=== PATIENT | female | born 1940 | race Caucasian/White ===

== ENCOUNTER 2017-04-03 10:31 | Emergency (ER) | payer MEDICARE ==
[2017-04-03 10:43] VITALS: BP 149/95
--- NOTE | 2017-04-03 11:03 | UC ---
Dental HPI - HPI Summary HPI Summary: Had tooth #29 removed yesterday at [facility] in [place]; the dentist communicated that the infection was worse than he thought afterward, has taken 3 doses of clindamycin since then. Today face is much more swollen, has more pain. Denies fever or trouble swallowing. - History of Current Complaint Chief Complaint: UCDentalProblem Stated Complaint: DENTAL COMPLAINT Time Seen by Provider: 04/03/17 10:41 Hx Obtained From: Patient ?: No Onset/Duration: Gradual Onset, Lasting Hours Severity: Moderate Alleviating: Nothing - Allergies/Home Medications Allergies/Adverse Reactions: Allergies Allergy/AdvReac Type Severity Reaction Status Date / Time Penicillins Allergy Hives Verified 12/15/14 08:22 Sulfa Drugs Allergy Unknown Verified 12/15/14 08:22 Reaction Details Home Medications: Home Medications Clindamycin HCl [Clindamycin 300 MG] 300 mg PO QID 04/03/17 [History Confirmed 04/03/17] PMH/Surg Hx/FS Hx/Imm Hx Other Cardiovascular History: arrhythmia Other History Of: Negative For: Anticoagulant Therapy - Surgical History Surgical History: Yes Surgery Procedure, Year, and Place: YOUNG CHILD T&ACHILD [id number] & 1990s CERVICAL POLYPS [facility] [place]07/2013 LEFT KNEE REPLACEMENT, [facility] [place] - Family History Known Family History: Positive: Hypertension - Social History Alcohol Use: None Substance Use Type: None Smoking Status (MU): Former Smoker Amount Used/How Often: 1/2 PPD Length of Time of Smoking/Using Tobacco: 4-5 YEARS When Did the Patient Quit Smoking/Using Tobacco: 1965 - Immunization History Most Recent Influenza Vaccination: fall 2012 Most Recent Tetanus Shot: within last ten years Most Recent Pneumonia Vaccination: pt states "current" Review of Systems Constitutional: Negative Skin: Negative Eyes: Negative ENT: Dental Pain, Other - swelling R face Respiratory: Negative Cardiovascular: Negative Gastrointestinal: Negative Genitourinary: Negative Motor: Negative Neurovascular: Negative Musculoskeletal: Negative Neurological: Negative Psychological: Negative All Other Systems Reviewed And Are Negative: Yes Physical Exam Triage Information Reviewed: Yes Appearance: Well-Appearing, Obese Vital Signs: Initial Vital Signs Temp 98.4 F 04/03/17 10:38 Pulse 69 04/03/17 10:38 Resp 18 04/03/17 10:38 BP 149/95 04/03/17 10:38 Pulse Ox 100 04/03/17 10:38 Vital Signs Reviewed: Yes Eye Exam: Normal Eyes: Positive: Conjunctiva Clear ENT Exam: Normal ENT: Positive: Normal ENT inspection, Hearing grossly normal, Pharynx normal, TMs normal Dental: Positive: Gross Decay/Caries @, Abscess @ - #29, marked swelling, Bleeding - from extraction Neck: Positive: Supple, Nontender Respiratory Exam: Normal Respiratory: Positive: Chest non-tender, Lungs clear, Normal breath sounds, No respiratory distress, No accessory muscle use Cardiovascular Exam: Normal Cardiovascular: Positive: RRR, No Murmur Musculoskeletal Exam: Normal Neurological Exam: Normal Neurological: Positive: Alert Psychological Exam: Normal Skin Exam: Normal Dental Complaint Course/Dx - Differential Dx/Diagnosis Provider Diagnoses: Dental abscess #29 Discharge - Discharge Plan Condition: Stable Disposition: HOME Patient Education Materials: Dental Abscess (ED) Additional Instructions: Please follow up with [facility] today as planned for further abscess drainage. If you develop fever, increasing swelling, trouble swallowing or breathing, or other severe symptoms, please go to the emergency department. Continue your clindamycin as prescribed.
== END 2017-04-03 11:15 | disposition home or self-care (01) ==
LOC: UCEAST 10:31
DX: K04.7 Periapical abscess without sinus (principal); K08.409 Partial loss of teeth, unspecified cause, unspecified class; I49.9 Cardiac arrhythmia, unspecified; E66.9 Obesity, unspecified; Z96.652 Presence of left artificial knee joint; Z88.0 Allergy status to penicillin; Z88.2 Allergy status to sulfonamides
CPT/HCPCS: 99211; G0463

== ENCOUNTER 2019-03-06 16:32 | Inpatient (IN) | payer MEDICARE ==
--- NOTE | 2019-03-06 17:13 | ED ---
Palpitations / Dysrhythmia - HPI Summary HPI Summary: Pt is a 78 y/o F presenting to the ED with a chief complaint of heart palpitations. She has had similar episodes to this that come relatively rarely and usually resolve fairly quickly. Today, she went for a followup echocardiogram at Dr. Arora office for a mitral valve check-up, and on the way to the appointment she started feeling her heart beat around in her chest. At the appointment, they decided to send her here for AFib. She denies CP or SOB. She has no other medical problems. - History of Current Complaint Chief Complaint: EDDysrhythmPalp Time Seen by Provider: 03/06/19 17:03 Hx Obtained From: Patient Onset/Duration: Sudden Onset, Lasting Hours, Still Present Timing: Constant Severity Initially: Moderate Severity Currently: Moderate Character: Fast Aggravating: Nothing Alleviating: Nothing - Allergy/Home Medications Allergies/Adverse Reactions: Allergies Allergy/AdvReac Type Severity Reaction Status Date / Time Penicillins Allergy Hives Verified 03/06/19 16:37 Sulfa (Sulfonamide Allergy Unknown Verified 03/06/19 16:37 Antibiotics) Reaction Details Home Medications: Home Medications NK [No Home Medications Reported] 03/06/19 [History Confirmed 03/06/19] PMH/Surg Hx/FS Hx/Imm Hx Previously Healthy: Yes Endocrine/Hematology History: Denies: Hx Anticoagulant Therapy, Hx Blood Disorders, Hx Blood Transfusions, Hx Bone Marrow Disease, Hx Diabetes, Hx Systemic Lupus Erythematosus, Hx Sickle Cell Disease, Hx Thyroid Disease, Hx Anemia, Hx Unexplained Bleeding, Other Endocrine/Hematological Disorders Cardiovascular History: Reports: 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 , Other Cardiovascular Problems/Disorders - mitral valve Denies: Hx Aneurysm, Hx Angina, Hx Angioplasty, Hx Auto Implanted Cardiovert Defib, Hx Cardiac Arrest, Hx Cardiomegaly, Hx Congenital Heart Disease, Hx Congestive Heart Failure, Hx Coronary Artery Disease, Hx Deep Vein Thrombosis, Hx Embolism, Hx Hypercholesterolemia, Hx Hypotension, Hx Hypertension, Hx Pacemaker/ICD, Hx Peripheral Vascular Disease, Hx Rheumatic Fever, Hx Syncope Respiratory History: Reports: Hx Sleep Apnea Denies: Hx Asthma, Hx Chronic Bronchitis, Hx Chronic Obstructive Pulmonary Disease (COPD), Hx Cystic Fibrosis, Hx Lung Cancer, Hx Pleural Effusion, Hx Pneumonia, Hx Pulmonary Edema, Hx Pulmonary Embolism, Hx Seasonal Allergies, Other Respiratory Problems/Disorders GI History: Denies: Hx Ulcer, Other GI Disorders History: Denies: Other Problems/Disorders Musculoskeletal History: Reports: Hx Arthritis - bilateral knees, Hx Bursitis - LEFT SHOULDER IN THE PAST Denies: Hx Back Problems, Hx Fibromyalgia, Hx Gout, Hx Orthopedic Injury, Hx Osteoporosis, Hx Scoliosis, Hx Tendonitis Sensory History: Reports: Hx Cataracts - LANE, Hx Contacts or Glasses, Hx Vision Problem Denies: Hx Eye Injury, Hx Eye Prosthesis, Hx Glaucoma, Hx Legally Blind, Hx Macular Degeneration, Hx Deafness, Hx Hearing Aid, Hx Hearing Problem, Other Sensory Impairments Opthamlomology History: Reports: Hx Cataracts - LANE, Hx Contacts or Glasses, Hx Vision Problem Denies: Hx Eye Injury, Hx Eye Prosthesis, Hx Glaucoma, Hx Legally Blind, Hx Macular Degeneration, Other Sensory Impairments Neurological History: Denies: Hx Dementia, Hx Developmental Delay, Hx Headaches, Hx Migraine, Hx Nerve Disease, Hx Seizures, Hx Spinal Cord Injury, Hx Transient Ischemic Attacks (TIA), Other Neuro Impairments/Disorders Psychiatric History: Reports: Hx Depression - MINOR IN THE PAST Denies: Hx Anxiety, Hx Attention Deficit Hyperactivity Disorder, Hx Eating Disorder, Hx Panic Disorder, Hx Post Traumatic Stress Disorder, Hx Inpatient Treatment, Hx Community Mental Health Tx, Hx Schizophrenia, Hx Bipolar Disorder , Hx Suicide Attempt, Hx of Violent Episodes Against Others, Hx Substance Abuse , Other Psychiatric Issues/Disorders - Cancer History Hx Chemotherapy: No Hx Radiation Therapy: No Hx Palliative Cancer Treatment: No - Surgical History Surgery Procedure, Year, and Place: YOUNG CHILD T&A,CHILD [id number] & , CERVICAL POLYPS [facility]07/2013 BILATERAL KNEE REPLACEMENT, [facility] [place] Hx Anesthesia Reactions: No Infectious Disease History: No Infectious Disease History: Reports: Hx Shingles - RIGHT SIDE - PAST Denies: Hx Clostridium Difficile, Hx Hepatitis, Hx Human Immunodeficiency Virus (HIV), Hx of Known/Suspected MRSA, Hx Tuberculosis, Hx Known/Suspected VRE , Hx Known/Suspected VRSA, History Other Infectious Disease, Traveled Outside the [place] in Last 30 Days - Family History Known Family History: Positive: Hypertension - Social History Alcohol Use: None Hx Substance Use: No Substance Use Type: Reports: None Hx Tobacco Use: Yes Smoking Status (MU): Former Smoker Amount Used/How Often: 1/2 PPD Length of Time of Smoking/Using Tobacco: 4-5 YEARS Review of Systems Positive: Palpitations. Negative: Chest Pain Negative: Shortness Of Breath All Other Systems Reviewed And Are Negative: Yes Physical Exam - Summary Physical Exam Summary: Appearance: Well-appearing, obese, lying in bed comfortably Skin: Warm, dry, no obvious rash Eyes: sclera anicteric, no conjunctival pallor ENT: mucous membranes moist, pharynx appears normal Neck: Supple, nontender Respiratory: Clear to auscultation, no signs of respiratory distress Cardiovascular: Tachycardic and irregularly irregular pulse. No murmurs. Normal distal pulses in tibial and radial bilaterally. Abdomen: Soft, nontender, normal active bowel sounds present Musculoskeletal: Normal, Strength/ROM Intact Neurological: A&Ox3, awake and alert, mentation is normal, speech is fluent and appropriate Psychiatric: affect is normal, does not appear anxious or depressed Triage Information Reviewed: Yes Vital Signs On Initial Exam: Initial Vitals Temp Pulse Resp BP Pulse Ox 98.6 F 91 20 179/96 99 03/06/19 16:36 03/06/19 16:36 03/06/19 16:36 03/06/19 16:36 03/06/19 16:36 Vital Signs Reviewed: Yes Procedures - Procedure Summary Procedure Summary: Procedure: IV conscious sedation Indication: Electrical cardioversion of atrial fibrillation Informed consent obtained, pre-procedure worksheet completed, timeout completed. Pt on monitor, with O2 and resuscitation equipment at the bedside. Pt was given propofol, 100 mg total, with good effect. Pt remained arousable to painful stimuli, but was adequately sedated for the procedure. Pt was recovered uneventfully. Cardio version was attempted 3 times, first at 150 J, subsequently at 200 J. Neither attempt was successful so I repositioned the pad for a true AP attempt at 200 J, however this was unsuccessful as well and the patient remains in atrial fibrillation Diagnostics - Vital Signs Vital Signs Temp Pulse Resp BP Pulse Ox 03/06/19 16:36 98.6 F 91 20 179/96 99 - Laboratory Result Diagrams: 03/06/19 17:39 03/06/19 17:38 Lab Statement: Any lab studies that have been ordered have been reviewed, and results considered in the medical decision making process. Course/Dx - Course Course Of Treatment: Pt is a 78 y/o F presenting to the ED with a chief complaint of heart palpitations. She went for a followup echocardiogram at Dr. Arora office for a mitral valve check-up, and on the way to the appointment she started feeling her heart beat around in her chest. At the appointment, they sent her here d/t AFib. She denies CP or SOB. She has no other medical problems, and the last episode she had like this was over four years ago. Aside from obesity and a tachycardic and irregularly irregular rhythm, the pt's physical exam is normal. After discussion with the covering aerial erector, Dr. Davalos, and a reasonable period of observation during which she did not convert on her own, we decided to proceed with electrical cardioversion. After unsuccessful cardioversion, I did speak with the covering hospitalist, Dr. Patel, O2 sats patient for admission at 1920 hrs. - Diagnoses Provider Diagnoses: Atrial fibrillation with rapid ventricular response - Critical Care Time Critical Care Time: 30-74 min Discharge - Sign-Out/Discharge Documenting (check all that apply): Patient Departure Patient Received Moderate/Deep Sedation with Procedure: Yes - Discharge Plan Disposition: ADMITTED TO [facility] Referrals: Isis Cox MD [Medical Doctor] - - Billing Disposition and Condition Disposition: Admitted to [facility] - Attestation Statements Document Initiated by Melissaibe: Yes Documenting Scribe: Lizeth Akhtar Provider For Whom Tami is Documenting (Include Credential): Lowell Sanders MD. Scribe Attestation: I, Lizeth Akhtar, scribed for Lowell Sanders MD. on 03/06/19 at 1919. Status of Scribe Document: Viewed Consult Consult: [id number] - I spoke with Dr. Davalos who states he is okay with cardioversion as long as I believe the story is reliable.
[2019-03-06] MEDS ORDERED: NS 0.9% 1000 ML** 1,000 ML IV ONE (17:14)
[2019-03-06] MEDS ORDERED: Diltiazem DRIP* 100 MG/100 ML ADDV.BAG IV ONE (17:14)
[2019-03-06] MEDS ORDERED: Diltiazem IV push/loading dose 5 MG/ML 5 ML vial (25 mg) IV PUSH ONE (17:14)
--- OUTSIDE RECORDS SUMMARY | 2019-03-06 17:24 | XMS REPORT | Continuity of Care Document ---
:1940 External Reference #:[id number] Author Name Therese Lopes Care Team Providers Name Role Phone Shelli Alcaraz DO Primary Care Physician Unavailable Payers Date Identification Numbers Payment Provider Subscriber Effective: 2004 Policy Number: [id number] Medicare Juliette Lopez PayID: [id number] [address] [place] [address] Effective: 2013 Policy Number: [id number] [facility] Juliette Lopez PayID: [id number] [address] [place] [address] Expires: 2013 Policy Number: [id number] [facility] Juliette Lopez PayID: [id number] [address] [place] [phone] Problems Active Problems Provider Date Dyspnea Fatemeh Navarro M.D. Onset: 06/26/2013 Electrocardiogram abnormal Fatemeh Navarro M.D. Onset: 06/26/2013 Morbid obesity Fatemeh Navarro M.D. Onset: 06/26/2013 Edema Fatemeh Navarro M.D. Onset: 06/26/2013 Preoperative cardiovascular examination Fatemeh Navarro M.D. Onset: Mitral valve disorder Fatemeh Navarro M.D. Onset: 08/25/2013 Family History Date Family Member(s) Observation Comments General Heart Disease General Cancer Father due to [place] () - 64 Mother due to Cancer, Liver () - 53 First Daughter Alive And Well Second Daughter Alive And Well Siblings 3 First Brother due to fire () Second Brother Alive And Well Social History Type Date Description Comments Sex Unknown Marital Status Lives With Occupation Retired Tobacco Use Start: Unknown End: Former Cigarette Smoker Unknown Smoking Status Reviewed: 02/18/19 Former Cigarette Smoker ETOH Use Denies alcohol use Tobacco Use Start: Unknown End: Patient is a former 5 years, less than Unknown smoker a half PPD or less. quit 1964 Recreational Drug Use Denies Drug Use Exercise Type/Frequency Exercises rarely back issues Allergies, Adverse Reactions, Alerts Active Allergies Reaction Severity Comments Date Penicillins hives 06/26/2013 Sulfa Antibiotics unk 06/26/2013 Medications Active Medications SIG Qnty Indications Ordering Provider Date Advil as needed Unknown 200mg Capsules History Medications Clindamycin HCL take two tabs one 2caps Dillan Skaggs, 07/16/2017 - 300mg hour prior to dental M.D. 10/08/2017 Capsules work Clindamycin HCL 2 tabs by mouth 1 2caps Dillan Skaggs, 06/05/2017 - 300mg hour prior to dental M.D. 06/26/2017 Capsules appointment No Active Unknown 02/03/2016 - Medications 01/24/2017 Neurontin 1 by mouth two times 60caps Dillan Skaggs, 02/10/2014 - 300mg a day M.D. 02/02/2016 Capsules Cipro one tab po bid x 7 14tabs Dillan Skaggs, 11/13/2013 - 500mg Tablets days M.D. 01/21/2014 No Active Unknown 10/28/2013 - Medications 10/28/2013 Percocet 1-2 tabs by mouth 60tabs Dillan Skaggs, 10/28/2013 - 5-325mg q4-6 as needed pain M.D. 04/13/2014 Tablets Coumadin take 1-3 as directed 90tabs Dillan Skaggs, 10/28/2013 - 2.5mg at 5pm daily M.D. 01/21/2014 Tablets Oxycodone/Acetaminop 1-2 tabs po tid prn 60tabs Dillan Skaggs, 2012 - hen pain M.D. 10/28/2013 5-325mg Tablets No Active Unknown 06/26/2013 - Medications 08/25/2013 Metoprolol Tartrate 1/2 po bid 90tabs Unknown - 10/28/2013 25mg Tablets Oxycodone/Acetaminop 1-2 tabs po q 4 hrs 80tabs Unknown - hen prn pain prescribed 08/27/2013 Tablets post op TKR Medications Administered in Office Medication SIG Qnty Indications Ordering Provider Date Depomedrol 40MG Amilcar Valdez MD 08/27/2017 Injection Vital Signs Date Vital Result Comment 02/18/2019 1:41pm Height 63 inches 5'3" Weight 312.75 lb Heart Rate 88 /min BP Systolic Sitting 156 mmHg ule lg cuff BP Diastolic Sitting 80 mmHg ule lg cuff BMI (Body Mass Index) 55.4 kg/m2 Ejection Fraction 60-65% Echo 03/09/16 02/06/2018 1:50pm Height 63 inches 5'3" Weight 300.00 lb w/ shoes Heart Rate 68 /min reg BP Systolic Sitting 134 mmHg Lue BP Diastolic Sitting 90 mmHg Lue Respiratory Rate 14 /min BMI (Body Mass Index) 53.1 kg/m2 Ejection Fraction 60-65% as of 2015 echo 10/17/2017 2:12pm Height 63 inches 5'3" Weight 299.00 lb Heart Rate 89 /min Respiratory Rate 17 /min Body Temperature 97.2 F Pain Level 5 BMI (Body Mass Index) 53.0 kg/m2 10/08/2017 11:19am Heart Rate 68 /min BP Systolic Sitting 146 mmHg BP Diastolic Sitting 82 mmHg Body Temperature 97.8 F 08/27/2017 11:15am Height 63 inches 5'3" Weight 299.00 lb Heart Rate 65 /min BP Systolic 158 mmHg BP Diastolic 83 mmHg Pain Level 4 BMI (Body Mass Index) 53.0 kg/m2 07/16/2017 8:50am Height 63 inches 5'3" BP Systolic 140 mmHg BP Diastolic 90 mmHg Respiratory Rate 18 /min Body Temperature 97.9 F Pain Level 6 01/24/2017 11:16am Height 63 inches 5'3" Weight 325.50 lb with shoes Heart Rate 90 /min BP Systolic Sitting 156 mmHg LA lrg cuff BP Diastolic Sitting 86 mmHg LA lrg cuff BMI (Body Mass Index) 57.7 kg/m2 Ejection Fraction 60% - 65% echo 03/09/16 02/03/2016 10:10am Height 63 inches 5'3" Weight 312.25 lb with shoes Heart Rate 86 /min BP Systolic 142 mmHg LA lrg cuff BP Diastolic 86 mmHg LA lrg cuff BMI (Body Mass Index) 55.3 kg/m2 Ejection Fraction 55%-60% 06/30/13 echo 07/02/2014 10:01am Height 63 inches 5'3" Weight 279.75 lb Heart Rate 64 /min BP Systolic Sitting 164 mmHg LA lg cuff BP Diastolic Sitting 68 mmHg LA lg cuff Respiratory Rate 14 /min BMI (Body Mass Index) 49.6 kg/m2 04/14/2014 8:42am Height 63 inches 5'3" Heart Rate 67 /min BP Systolic 155 mmHg BP Diastolic 77 mmHg 02/10/2014 9:12am Height 63 inches 5'3" Heart Rate 67 /min BP Systolic 144 mmHg BP Diastolic 92 mmHg 01/22/2014 9:28am Height 64 inches 5'4" Heart Rate 69 /min BP Systolic 133 mmHg BP Diastolic 63 mmHg 12/16/2013 9:12am Height 64 inches 5'4" Weight 284.00 lb Heart Rate 72 /min BMI (Body Mass Index) 48.7 kg/m2 10/28/2013 2:15pm Height 64 inches 5'4" Weight 284.00 lb Heart Rate 70 /min BP Systolic 157 mmHg BP Diastolic 73 mmHg BMI (Body Mass Index) 48.7 kg/m2 08/25/2013 1:42pm Height 65 inches 5'5" Weight 306.00 lb Heart Rate 66 /min BP Systolic Sitting 114 mmHg ra BP Diastolic Sitting 64 mmHg ra BMI (Body Mass Index) 50.9 kg/m2 06/26/2013 8:52am Height 65 inches 5'5" Weight 316.00 lb Heart Rate 56 /min BP Systolic Sitting 148 mmHg BP Diastolic Sitting 80 mmHg Respiratory Rate 20 /min BMI (Body Mass Index) 52.6 kg/m2 Results Test Date Facility Test Result H/L Range Note Urinalysis 11/09/2013 [facility] Urine Color Christie [address] [place] [address] [phone] Urine Appearance Clear Urine Specific [place] 1.027 1.010-1.030 Urine Esterase 1+ Abnormal Negative Urine Nitrate Negative Negative Urine Urobilinogen Negative E.U./dL Negative Urine Protein Trace mg/dL Abnormal Negative Urine pH 5.0 5-9 Urine Blood Negative Negative Urine Ketones Trace mg/dL Abnormal Negative Urine Bilirubin 1+ Abnormal Negative Urine Glucose Negative mg/dL Negative Urine Microscopic 11/09/2013 [facility] Urine WBC 3+ (>30 None Seen [address] /hpf) [place] [address] [phone] Urine Mucus Present /lpf Absent Bacteria Urine 2+ None Seen Urine Culture And 11/09/2013 [facility] Urine Culture (SEE NOTE ) [address] [place] [address] [phone] Basic Metabolic 11/09/2013 [facility] Sodium 141 mmol/L 133- [address] [place] [address] [phone] Potassium 4.2 mmol/L 3.7-5.6 Chloride 107 mmol/L 101-111 Co2 Carbon Dioxide 29 mmol/L 22-32 Anion Gap 5 mmol/L 2-11 Glucose 95 mg/dL 70-100 Blood Urea Nitrogen 21 mg/dL 6-24 Creatinine 0.95 mg/dL 0.51-0.95 BUN/Creatinine Ratio 22.1 High 8-20 Calcium 9.4 mg/dL 8.6-10.3 Egfr Non- 57.5 >60 Egfr 74.0 >60 2 Type & Screen 11/09/2013 [facility] Patient Blood Type B Positive [address] [place] [address] [phone] Antibody Screen NEGATIVE CBC No Diff 11/09/2013 [facility] White Blood 7.9 10^3/uL 4.8 -10.[address] [place] [address] [phone] Red Blood Count 4.86 10^6/uL 4.0-5.4 Hemoglobin 13.5 g/dL 12.0-16.0 Hematocrit 40 % 35-47 Mean Corpuscular Volume 82 fL 80-97 Mean Corpuscular Hemoglobin 28 pg 27-31 Mean Corpuscular HGB Conc 34 g/dL 31-36 Red Cell Distribution Width 15 % 10.5-15 Platelet Count 213 10^3/uL 150-450 Mean Platelet Volume 9 um3 7.4-10.4 Urine Microscopic 07/16/2013 [facility] Urine WBC 1+ (<10 None Seen [address] /hpf) [place] [address] [phone] Urine RBC 2+ (>3-10 /hpf) None Seen Urine Mucus Present /lpf Absent Bacteria Urine 2+ None Seen Urinalysis 07/16/2013 [facility] Urine Color Yellow [address] [place] [address] [phone] Urine Appearance Clear Urine Specific [place] 1.021 1.010-1.030 Urine Esterase Trace Abnormal Negative Urine Nitrate Negative Negative Urine Urobilinogen Negative E.U./dL Negative Urine Protein Negative mg/dL Negative Urine pH 6.0 5-9 Urine Blood 1+ Abnormal Negative Urine Ketones Negative mg/dL Negative Urine Bilirubin Negative Negative Urine Glucose Negative mg/dL Negative Basic Metabolic Panel 07/16/2013 [facility] Sodium 139 mmol/L 133-145 [address] [place] [address] [phone] Potassium 4.4 mmol/L 3.5-5.0 Chloride 104 mmol/L 101-111 Co2 Carbon Dioxide 28.0 mmol/L 22-32 Anion Gap 7.0 mmol/L 2-11 Glucose 87 mg/dL 70-100 Blood Urea Nitrogen 20 mg/dL 6-24 Creatinine 0.80 mg/dL 0.50-1.40 BUN/Creatinine Ratio 25.0 High 8-20 Calcium 9.0 mg/dL 8.1-9.9 Egfr Non- 70.1 >60 Egfr 90.2 >60 3 CBC No Diff 07/16/2013 [facility] White Blood 7.5 10^3/uL 4.8 -10.8 [address] [facility] [place] [address] [phone] Red Blood Count 4.60 10^6/uL 4.0-5.4 Hemoglobin 13.4 g/dL 12.0-16.0 Hematocrit 41 % 35-47 Mean Corpuscular Volume 89 fL 80-97 Mean Corpuscular Hemoglobin 29 pg 27-31 Mean Corpuscular HGB Conc 33 g/dL 31-36 Red Cell Distribution Width 14 % 10.5-15 Platelet Count 175 10^3/uL 150-450 Mean Platelet Volume 8 um3 7.4-10.4 1 RUN DATE: 11/12/13 [facility] LAB LIVE PAGE 1 RUN TIME: 1003 [address] [facility] [address] Specimen Inquiry Name: JULIETTE LOPEZ Surya : [address]: Dillan Skaggs MD Acct: [id number] Unit: [id number] AGE: 73 Location: PAT Re11/09/13 SEX: F Status: REG REF SPEC: [id number] ARMINDA: 11/09/13-1118 [facility] DR: Dillan Skaggs MD REQ: [id number] RECD: 11/09/13 STATUS: PRETTY TORRES DR: Isis Cox MD _ SOURCE: URINE SPDESC: ORDERED: Urine Culture Procedure Result Verified Site Urine Culture Final 11/12/13- 1002 ML Organism 1 KLEBSIELLA PNEUMONIAE [place] Count 75-100,000 (Many) CFU/ML Organism 2 NORMAL TASIA [place] Count 10-25,000 (Moderate) CFU/ML 1. KLEBSIELLA PNEUMONIAE M.I.C. RX --------- ------ Ampicillin R Cefazolin <=4 S Cefepime <=1 S Ceftriaxone <=1 S Ciprofloxacin <=0.25 S Gentamicin <=1 S Imipenem <=0.25 S Levofloxacin <=0.12 S Meropenem <=0.25 S Nitrofurantoin <=16 S Tetracycline <=1 S Pipercillin/Tazobactam <=4 S Trimethoprim/Sulfamethoxazole <=20 S Amoxicillin/Clavulanic Acid <=2 S Aztreonam <=1 S Contact the Microbiology Department for any additional antibiotic reporting. END OF REPORT * ML=Testing performed at Main Lab DEPARTMENT OF PATHOLOGY, [address] [place] [address] Bill Mirza M.D. Director [facility] Permit #[id number] 2 Because ethnic data is not always readily available, this report includes an eGFR for both -Americans and non- Americans. The National Kidney Disease Education Program (NKDEP) does not endorse the use of the MDRD equation for patients that are not between the ages of 18 and 70, are , have extremes of body size, muscle mass, or nutritional status, or are non- or non-. According to the National Kidney Foundation, irrespective of diagnosis, the stage of the disease is based on the level of kidney function: Stage Description GFR(mL/min/1.73 m(2)) 1 Kidney damage with normal or decreased GFR 90 2 Kidney damage with mild decrease in GFR 60-89 3 Moderate decrease in GFR 30-59 4 Severe decrease in GFR 15-29 5 Kidney failure <15 (or dialysis) 3 Because ethnic data is not always readily available, this report includes an eGFR for both -Americans and non- Americans. The National Kidney Disease Education Program (NKDEP) does not endorse the use of the MDRD equation for patients that are not between the ages of 18 and 70, are , have extremes of body size, muscle mass, or nutritional status, or are non- or non-. According to the National Kidney Foundation, irrespective of diagnosis, the stage of the disease is based on the level of kidney function: Stage Description GFR(mL/min/1.73 m(2)) 1 Kidney damage with normal or decreased GFR 90 2 Kidney damage with mild decrease in GFR 60-89 3 Moderate decrease in GFR 30-59 4 Severe decrease in GFR 15-29 5 Kidney failure <15 (or dialysis) Procedures Date Code Description Status 02/18/2019 62989 EKG Tracing & Interpretation Completed 02/06/2018 36409 EKG Tracing & Interpretation Completed 08/27/2017 41575 Inject/Drain Joint/Bursa Major W/O US Completed 01/24/2017 07059 EKG Tracing & Interpretation Completed 03/09/2016 15070 ECHO Transthoracic, Real-Time 2D With Doppler And Color Completed Flow 02/24/2016 11304 Color Flow Doppler/Interp & Reprt Completed 02/24/2016 09173 Pulse Wave/Continuous-Interp.RPT Completed 02/24/2016 62467 Echocardiography, Transesophageal, Real Time W/Image 2D Completed W/W/O M-M 02/03/2016 43761 EKG Tracing & Interpretation Completed 07/02/2014 34530 EKG Tracing & Interpretation Completed 12/16/2013 93085 Xray Knee 3 Views Completed 11/16/2013 83669 TKR Total Knee Replacement Completed 11/16/2013 75093 TKR Total Knee Replacement Completed 11/09/2013 03279 EKG, Interpretation Only Completed 08/27/2013 77228 Xray Knee 3 Views Completed 08/25/2013 65578 EKG Tracing & Interpretation Completed 08/03/2013 96765 EKG, Interpretation Only Completed 08/02/2013 35027 EKG, Interpretation Only Completed 07/31/2013 38552 EKG, Interpretation Only Completed 07/27/2013 64156 TKR Total Knee Replacement Completed 07/27/2013 75554 TKR Total Knee Replacement Completed 07/23/2013 96261 Treadmill Interp/Report Only Completed 07/23/2013 64169 Stress Test Supervsn W/Out I/R Completed 06/30/2013 43543 ECHO Transthoracic, Real-Time 2D With Doppler And Color Completed Flow 06/26/2013 09976 EKG Tracing & Interpretation Completed 12/10/2012 13586 Xray Knee 3 Views Completed 12/10/2012 45001 Xray Knee 3 Views Completed 12/10/2012 95573 Rad Exam; Knee, Ap&L Completed 12/10/2012 68110 Rad Exam; Knee, Ap&L Completed 08/23/2011 55403 ECHO Transthoracic, Real-Time 2D With Doppler And Color Completed Flow Encounters Type Date Location Provider Dx Diagnosis Office Visit 02/06/2018 [facility] S. I34.0 Nonrheumatic mitral 2:20p Kanchan Navarro (valve) insufficiency Z82.49 Family hx of ischem heart dis and oth dis of the circ sys E66.9 Obesity, unspecified R94.31 Abnormal electrocardiogram [ECG] [EKG] Office Visit 10/17/2017 1:45p Orthopedic Amilcar Talbert S46.012D Strain of Services Of MD luma Valdez/tend the C.M.A. rotator cuff of left shoulder, subs M75.52 Bursitis of left shoulder M75.42 Impingement syndrome of left shoulder M19.012 Primary osteoarthritis, left shoulder Office Visit 10/08/2017 11:15a Orthopedic Amilcar Talbert S46.012D Strain of Services Of MD luma Valdez/tend the C.M.A. rotator cuff of left shoulder, subs M75.52 Bursitis of left shoulder Office Visit 08/27/2017 11:15a Orthopedic Amilcar Talbret M75.52 Bursitis of Services Of MD José Miguel left shoulder C.M.A. S46.012D Strain of luma/tend the rotator cuff of left shoulder, subs Office Visit 07/16/2017 Orthopedic Amilcar Talbert S46.012A Strain of 8:15a Services Of MD luma Valdez/antonio the C.M.A. rotator cuff of left shoulder, init Office Visit 01/24/2017 [facility] Fatemeh S. I34.0 Nonrheumatic 11:20a Cardiology Melanie, mitral (valve) M.DPriyanka insufficiency I27.2 Other secondary pulmonary hypertension Z82.49 Family hx of ischem heart dis and oth dis of the circ sys E66.9 Obesity, unspecified Z68.43 Body mass index (BMI) 50-59.9 , adult R94.31 Abnormal electrocardiogram [ECG] [EKG] Office Visit 02/27/2016 [facility] Milton Monteiro R78.81 Bacteremia 1:14p Elias Harris M.D. Diseases Office Visit 02/27/2016 [facility] Estella Rader, L03.119 Cellulitis of 9:46a aure Guillen M.D. unspecified part Hospitalists of limb A49.1 Streptococcal infection, unspecified site A41.9 Sepsis, unspecified organism Office Visit 02/26/2016 [facility] Estella L03.119 Cellulitis of 9:46a aure Guillen M.D. unspecified part Hospitalists of limb A41.9 Sepsis, unspecified organism A49.1 Streptococcal infection, unspecified site Office Visit 02/25/2016 [facility] Estella L03.119 Cellulitis of 9:45a aure Guillen M.D. unspecified part Hospitalists of limb A41.9 Sepsis, unspecified organism A49.1 Streptococcal infection, unspecified site Office Visit 02/24/2016 [facility] Estella L03.119 Cellulitis of 9:45a aure Guillen M.D. unspecified part Hospitalists of limb A41.9 Sepsis, unspecified organism A49.1 Streptococcal infection, unspecified site Office Visit 02/24/2016 1:11p [facility] Milton Monteiro L03.115 Cellulitis of For Elias Harris M.D. right lower limb Diseases R78.81 Bacteremia K13.79 Other lesions of oral mucosa Office Visit 02/23/2016 [facility] Estella L03.119 Cellulitis of 9:44a aure Guillen M.D. unspecified part Hospitalists of limb L02.416 Cutaneous abscess of left lower limb A41.9 Sepsis, unspecified organism Office Visit 02/22/2016 [facility] Juan Pablo Maryam, L03.119 Cellulitis of 9:44a aure Guillen M.D. unspecified part Hospitalists of limb L02.419 Cutaneous abscess of limb, unspecified A41.9 Sepsis, unspecified organism Office Visit 02/03/2016 10:20a [facility] Fatemeh S. E66.01 Morbid Kanchan Navarro (severe) obesity due to excess calories R94.31 Abnormal electrocardiogram [ECG] [EKG] I34.0 Nonrheumatic mitral (valve) insufficiency Z82.49 Family hx of ischem heart dis and oth dis of the circ sys R06.02 Shortness of breath Office Visit 07/02/2014 10:20a [facility] Fatemeh S. 278.01 Obesity Morbid Kanchan Navarro 794.31 Electrocardiogram (ECG) (EKG) Abnormal 424.0 Mitral Valve Disorder V17.3 History Family Ischemic Heart Disease Office Visit 04/14/2014 [facility] Kait 715.16 Osteoarthrosis 8:45a Services Of FANTA Hoff Localized Prim Lower C.M.A. Leg Office Visit 02/10/2014 Orthopedic Dillan 715.16 Osteoarthrosis 9:00a Services Of Kanchan Skaggs Localized Prim Lower C.M.A. Leg Office Visit 08/25/2013 [facility] S. 794.31 Electrocardiogram 1:40p Kailee Navarro (ECG) (EKG) Abnormal Zan.DPriyanka 278.01 Obesity Morbid 782.3 Edema 424.0 Mitral Valve Disorder Office Visit 07/23/2013 [facility] Qutashi S. V72.81 Examination 10:30a Kailee Navarro M.D. Preoperative Cardiovascular 786.05 Shortness Of Breath 794.31 Electrocardiogram (ECG) (EKG) Abnormal 278.01 Obesity Morbid Office Visit 06/26/2013 9:20a [facility] Fatemeh S. 786.05 Shortness Of Kanchan Navarro Breath 794.31 Electrocardiogram (ECG) (EKG) Abnormal 278.01 Obesity Morbid 782.3 Edema V72.81 Examination Preoperative Cardiovascular Office Visit 05/20/2013 Orthopedic Fer Melo 715.16 Osteoarthrosis 11:30a Services Of Estefanía Ruano Prim C.M.A. RPA-C Lower Leg Office Visit 12/10/2012 Orthopedic Dillan Skaggs, 715.16 Osteoarthrosis 10:00a Services Of Kanchan José Prim C.M.A. Lower Leg Plan of Treatment Future Appointment(s):03/06/2019 3:00 pm - [place] ECHO Schedule at [facility]03/10/2019 2:40 pm - Shelli Alcaraz, DO at [facility]02/18/2019 - Fatemeh Navarro M.D.I34.0 Nonrheumatic mitral (valve) insufficiencyFollow up:one yr ovE66.9 Obesity, iknffifumgeF74.49 Family history of ischemic heart disease and other dsfgixryM73.02 Shortness of breathNew Orders :Echocardiogram, Scheduled: 03/06/19
[2019-03-06] MEDS ORDERED: Rivaroxaban TAB(*) 15 MG PO ONE (17:36)
[2019-03-06 17:52] LABS: ABS Basophils 0.1 10^3/ul (0-0.2); ABS Eosinophils 0.2 10^3/ul (0-0.6); ABS Lymphocytes 1.7 10^3/ul (1.0-4.8); ABS Monocytes 0.4 10^3/ul (0-0.8); ABS Neutrophils 3.6 10^3/ul (1.5-7.7); Eosinophil % 2.6 %; Hematocrit 39 % (35-47); Hemoglobin 13.5 g/dL (12.0-16.0); Lymphocyte % 28.6 %; Mean Corpuscular HGB Conc 35 g/dL (31-36); Mean Corpuscular Hemoglobin 30 pg (27-31); Mean Corpuscular Volume 88 fL (80-97); Mean Platelet Volume 7.8 fL (7.4-10.4); Nucleated Red Blood Cells % 0.2; Platelet Count 140 10^3/uL (150-450); Red Blood Count 4.43 10^6 /uL (3.70-4.87); Red Cell Distribution Width 14 % (10-15); White Blood Count 5.8 10^3/uL (3.5-10.8)
[2019-03-06] MEDS ORDERED: Diltiazem 125 mg in 125 mL NS (continuous infusion) IV SCH (18:00)
[2019-03-06 18:12] LABS: Albumin 3.9 g/dL (3.2-5.2); Albumin/Globulin Ratio 1.6 (1-3); BUN/Creatinine Ratio 19.8 (8-20); Calcium 9.2 mg/dL (8.6-10.3); EGFR African American 72.2 (>60); EGFR Non-African American 59.6 (>60); Globulin 2.4 g/dL (2-4); Magnesium 1.9 mg/dL (1.9-2.7); Potassium 4.1 mmol/L (3.5-5.0); Total Bilirubin 0.8 mg/dL (0.2-1.0); Total Protein 6.3 g/dL (6.4-8.9)
[2019-03-06] MEDS ORDERED: Rivaroxaban TAB(*) 20 MG TAB PO ONE (18:31)
[2019-03-06 18:45] LABS: TSH (Thyroid Stimulating Horm) 4.16 mcIU/mL (0.34-5.60)
[2019-03-06] MEDS ORDERED: Propofol* 10 MG/ML 20 ML BTL IV PUSH ONE (18:45)
[2019-03-06] MEDS ORDERED: Acetaminophen TAB* 325 MG PO PRN (20:18)
[2019-03-06] MEDS ORDERED: Lactated Ringers 1000 ML Bag* 1,000 ML IV SCH (21:00)
--- NOTE | 2019-03-06 22:06 | HP ---
CC: Shelli Alcaraz DO; Dr. Navarro HISTORY AND PHYSICAL: DATE OF ADMISSION: 03/06/2019 PRIMARY CARE PHYSICIAN: Shelli Alcaraz DO. FURNITURE DIPPER: Dr. Navarro. HEALTHCARE PROXY: Mitchell, her . CODE STATUS: DNR/DNI. CHIEF COMPLAINT: Palpitations for several hours. HISTORY OF PRESENT ILLNESS: Ms. Lopez is a 78-year-old woman with mitral valve prolapse, obesity, and chronic lymphedema, who was referred from cardiology clinic today for new diagnosis of atrial fibrillation. The patient reports that she was in her usual state of health up until this morning when she was driving to her cardiology office for a scheduled echo for followup of her known mitral valve prolapse. When she was getting out of her car in the parking lot, she states she began experiencing sudden onset of palpitations that did not resolve. She states that several years ago, she experienced palpitations like this approximately 3 times spaced out over a couple years and each time these episodes self resolved. She has not experienced them in the last 4 years. The patient states that she was able to undergo the complete echo procedure, but then was recommended to go to the emergency room for atrial fibrillation with rapid ventricular response. The patient denies recent illness, chest pain, shortness of breath, light headedness, fever, chills, night sweats, change in appetite, abdominal pain, nausea, vomiting, constipation, diarrhea, or dysuria. In the emergency room, the patient was initially noted to have heart rate of 120s. She was placed on Cardizem drip with decrease in her heart rate, but did not convert out of atrial fibrillation rhythm. Cardiology was consulted, who recommended electrical cardioversion. This was attempted 3 times, first at a 150 joules and then twice more at 200 joules without success. The patient was placed back on Cardizem drip for rate control and asked to be admitted to the medical service. She was also initiated on Xarelto and given 1 L of fluids. PAST MEDICAL HISTORY: 1. Mitral valve prolapse. 2. History of hospitalization in 2016 for Strep viridans septicemia and lower extremity cellulitis. 3. Morbid obesity with BMI 53. 4. Chronic lymphedema of lower extremities. MEDICATIONS: Advil [id number] as needed for joint pain. ALLERGIES: PENICILLIN causes hives and SULFA ANTIBIOTICS caused unknown reaction as a child. FAMILY HISTORY: Mother at age 53 of liver cancer. Father at age 63 of an ME. SOCIAL HISTORY: The patient lives with her , Mitchell, who is her healthcare proxy. She quit smoking tobacco use in her 20s. She does not use alcohol or other drugs. She is retired from working for a [employer] and she has 2 children. REVIEW OF SYSTEMS: A complete 10-point review of systems was performed, and pertinent positives and negatives are listed in the HPI. PHYSICAL EXAMINATION GENERAL: She is a well-appearing woman, in no acute distress. Lying flat in stretcher. Alert and interactive, answering questions appropriately. VITAL SIGNS: The patient is afebrile. Heart rate on tele strip is 90s. Blood pressure 138/96, respiratory rate 16, oxygen saturation 96% on room air. HEENT: Dry mucous membranes. OP clear. NECK: Normal JVP. LUNGS: Clear to auscultation bilaterally. HEART: Irregularly irregular with soft systolic murmur. No gallops or rubs. ABDOMEN: Soft, nontender, nondistended. EXTREMITIES: Lower extremities with nonpitting edema, warm and well perfused. DIAGNOSTIC STUDIES/LAB DATA: Labs reviewed and significant for platelets 140 at baseline. Otherwise, CBC, BMP, and LFTs are unremarkable. TSH 4.16. Chest x-ray not obtained. ASSESSMENT AND PLAN: Ms. Lopez is a 78-year-old woman with a history of mitral valve prolapse, who is presenting with sudden onset of atrial fibrillation with rapid ventricular response, which did not covert with multiple attempts at cardioversion, who is being admitted on Cardizem drip for further titration and initiation of oral medications. 1. Atrial fibrillation. Maintain on Cardizem drip. We will also initiate diltiazem 30 mg p.o. every 6 hours with an attempt to titrate off Cardizem drip and eventually convert to long acting diltiazem. The patient was also initiated on rivaroxaban 20 mg in the emergency room - will continue. 2. Morbid obesity. BMI 53. Lifestyle changes discussed. 3. DVT prophylaxis. The patient is now on therapeutic anticoagulation. 4. Code status. The patient is DNR/DNI and this is documented in prior MOLST form. TIME SPENT: Approximately 60 minutes was spent on the admission of this patient , more than half of which was spent at bedside for interview and exam. [id number]/[facility] #: [id number] [facility] HOSPITALSalvatore
[2019-03-06] MEDS: Diltiazem TAB* 30 MG PO SCH (23:35)
[2019-03-06] MEDS: Nystatin TOP POWDER* 15 GM BTL TOPICAL SCH (23:35)
[2019-03-07] MEDS: Diltiazem TAB* 30 MG PO SCH (08:03)
[2019-03-07] MEDS: Nystatin TOP POWDER* 15 GM BTL TOPICAL SCH ×2 (08:03→22:29)
[2019-03-07] MEDS ORDERED: Diltiazem CD CAP* 240 MG PO ONE (09:48)
--- NOTE | 2019-03-07 09:54 | PN ---
Subjective Date of Service: 03/07/19 Interval History: Pt converted to sinus around 1 am last night.Off cardizem drip.BP elevated around 170s Objective Active Medications: Acetaminophen (Tylenol Tab*) 650 mg PO Q4H PRN PRN Reason: FEVER/PAIN Diltiazem HCl (Cardizem Cd Cap*) 240 mg PO ONCE ONE Stop: 03/07/19 09:49 Nystatin (Nystatin Top Powder*) 1 applic TOPICAL BID [facility] Last Admin: 03/07/19 08:03 Dose: 1 applic Rivaroxaban (Xarelto(*)) 20 mg PO QPM [facility] Vital Signs - 8 hr 03/07/19 03/07/19 03/07/19 02:00 02:15 02:30 Temperature Pulse Rate 68 60 61 Respiratory 24 18 16 Rate Blood Pressure 133/62 139/57 113/60 (mmHg) O2 Sat by Pulse 94 92 93 Oximetry 03/07/19 03/07/19 03/07/19 02:45 03:00 03:15 Temperature Pulse Rate 63 71 65 Respiratory 13 19 21 Rate Blood Pressure 122/54 127/62 110/79 (mmHg) O2 Sat by Pulse 92 95 94 Oximetry 03/07/19 03/07/19 03/07/19 03:30 03:46 03:47 Temperature 98.1 F Pulse Rate 62 Respiratory 15 15 Rate Blood Pressure (mmHg) O2 Sat by Pulse 93 Oximetry 03/07/19 03/07/19 03/07/19 04:00 04:30 05:00 Temperature Pulse Rate 67 68 68 Respiratory 16 23 19 Rate Blood Pressure 122/50 113/45 (mmHg) O2 Sat by Pulse 94 91 87 Oximetry 03/07/19 03/07/19 03/07/19 05:30 06:00 06:30 Temperature Pulse Rate 63 69 61 Respiratory 18 16 18 Rate Blood Pressure 118/61 (mmHg) O2 Sat by Pulse 94 93 93 Oximetry 03/07/19 03/07/19 03/07/19 07:00 07:15 07:30 Temperature Pulse Rate 60 55 Respiratory 13 14 13 Rate Blood Pressure 127/50 (mmHg) O2 Sat by Pulse 95 94 Oximetry 03/07/19 03/07/19 03/07/19 07:43 08:00 08:30 Temperature 98.2 F Pulse Rate 65 58 73 Respiratory 27 15 15 Rate Blood Pressure 116/54 121/53 (mmHg) O2 Sat by Pulse 96 93 94 Oximetry 03/07/19 03/07/19 03/07/19 09:00 09:01 09:02 Temperature Pulse Rate 74 74 73 Respiratory 22 22 21 Rate Blood Pressure 166/71 155/80 (mmHg) O2 Sat by Pulse 92 93 96 Oximetry 03/07/19 03/07/19 09:06 09:10 Temperature Pulse Rate 68 Respiratory 21 18 Rate Blood Pressure 171/71 (mmHg) O2 Sat by Pulse 95 Oximetry Oxygen Devices in Use Now: None Eyes: No Scleral Icterus Ears/Nose/Mouth/Throat: NL Teeth, Lips, Gums Neck: NL Appearance and Movements; NL JVP Respiratory: Symmetrical Chest Expansion and Respiratory Effort Cardiovascular: NL Sounds; No Murmurs; No JVD, RRR Abdominal: NL Sounds; No Tenderness; No Distention Extremities: No Edema, - - 1+ Edema Result Diagrams: 03/06/19 17:39 03/06/19 17:38 Microbiology and Other Data: Microbiology 03/06/19 21:20 Nasal Screen MRSA (PCR) - Final Nasal Mrsa Not Detected Assess/Plan/Problems-Billing Assessment: - Patient Problems (1) A-fib Current Visit: Yes Status: Acute Code(s): I48.91 - UNSPECIFIED ATRIAL FIBRILLATION SNOMED Code(s): 60988117 Comment: Had 3 unsuccessful electrical cardioversion attempts in the ER yesterday Was on a cardizem drip overnight converted to sinus Cardizem drip stopped On q6h cardizem Will change to Cardizem CD 240 mg po q daily and evaluate Continue Xarelto started in ER for anticoagulation Echo done as outpatient pending Transfer out of ICU (2) Hypertension Current Visit: Yes Status: Acute Code(s): I10 - ESSENTIAL (PRIMARY) HYPERTENSION SNOMED Code(s): 89194497 Comment: BP in 170s usaally does not take bp meds at home cardizem cd and evaluate progress small component of volume overload in setting of new a fib cxr and will consider small dose lasix
[2019-03-07] MEDS ORDERED: Rivaroxaban TAB(*) 20 MG TAB PO SCH (18:00)
[2019-03-08] MEDS: Nystatin TOP POWDER* 15 GM BTL TOPICAL SCH (11:06)
[2019-03-08 11:58] VITALS: BP 144/63
--- NOTE | 2019-03-08 16:00 | DS ---
DISCHARGE SUMMARY: DATE OF ADMISSION: 03/06/19 DATE OF DISCHARGE: 03/08/19 PRIMARY DIAGNOSES: 1. Atrial fibrillation, rapid ventricular response. 2. Hypertension. SECONDARY DIAGNOSES: 1. Mitral valve prolapse. 2. History of hospitalization in 2016 for Streptococcus viridans septicemia and lower extremity cell ulitis. 3. Morbid obesity. 4. Chronic lymphedema of lower extremities. HOSPITAL COURSE: A 78-year-old woman with mitral valve prolapse, obesity, and chronic lymphedema was referred from cardiology clinic for new diagnosis of atrial fibrillation. The patient was in her [facility] and was driving to the cardiology office for a scheduled echocardiogram for follo wup of her known mitral valve prolapse. When she was getting out of the car in the parking lot, she started experiencing palpitations that did not resolve. The patient reports that she completed her e chocardiogram procedure and was referred to the emergency room for atrial fibrillation, rapid ventric ular response. Several years ago, the patient had palpitations, but these episodes resolved and the patient is not sure if she had a history of atrial fibrillation in the past. In the ER, the on-call occupational therapy asst, Dr. Davalos, was contacted. The patient was placed on a Cardizem drip and after discussi on with cardiology, electrical cardioversion was attempted first at 150 joules and later twice at 200 joules without success. The patient was placed back on the Cardizem drip and admitted to the hospit alist service. The patient was also initiated on Xarelto and given 1 L of fluids. The patient spont aneously converted to sinus rhythm overnight and her drip was discontinued. The patient was then plac ed on Cardizem 30 mg q.6 hours and then transitioned to extended release Cardizem as her blood pressu re was also elevated and for further rate control; however, the patient's heart rate reduced to 40s a nd the extended release Cardizem was held. The patient will be continued on her Xarelto at least for 4 weeks or longer or shorter per discussion of her primary occupational therapy asst, Dr. Navarro. Discharge p cyndi discussed with on-call occupational therapy asst and as the patient is already in sinus, we will discharge her on Xarelto for 4 weeks or as determined by her occupational therapy asst. We will also discharge the patient on Cardizem 30 mg p.o. b.i.d. per discussion with cardiology and evaluate progress. The patient is othe rwise not on any blood pressure medications. Heart rate noted to be 70 and in sinus today and blood pressure in the 140s. Earlier yesterday, her blood pressure was elevated in the 150s to 160s range a nd this has improved. The patient to follow up with her primary care doctor in 1 to 2 weeks and the patient is to follow up with Dr. Navarro next week. The patient was advised to call Dr. Navarro' s office on Saturday to get an appointment. The patient is also to follow up on the results of the ech ocardiogram done at cardiology office. Vitals and labs noted to be stable at the time of discharge. PHYSICAL EXAMINATION: HEENT: NC/AT. Heart: S1, S2 present. Regular at the time of exam. Lungs: Decreased breath sounds bilaterally. Abdomen: Soft, obese. No rebound. No guarding. Extremities : Noted to have chronic edema, nontender. MEDICATION LIST AT THE TIME OF DISCHARGE: 1. Xarelto 20 mg p.o. daily. 2. Cardizem 30 mg p.o. b.i.d. INSTRUCTIONS: 1. The patient to follow up with PCP in 1 to 2 weeks. 2. The patient to follow up with her occupational therapy asst, Dr. Navarro, next week and call the office [facility] to make an appointment. 3. The patient to follow up results of the echocardiogram. 4. The patient is high risk and likely has sleep apnea and obesity hypoventilation syndrome in light of her BMI. The patient does not endorse any snoring. The patient may benefit from a sleep study a s an outpatient due to correlation with sleep apnea and atrial fibrillation. The patient is to discu ss this further with her primary care doctor and if warranted to have a sleep study as an outpatient. DISCHARGE CONDITION: Stable. DISPOSITION: Home. TIME SPENT: Total time spent on discharge is equal to 45 minutes. [id number]/[facility] #: [id number]
== END 2019-03-08 13:00 | disposition home or self-care (01) | DRG 309 ==
LOC: ED 16:32 → ICU 20:18 → MEDTELE 03-07 10:27
PROVIDERS: ADMIT Internal Medicine; ATTEND Internal Medicine
PROC: 5A2204Z Restoration of Cardiac Rhythm, Single (ICD-10-PCS; principal; 2019-03-06)
DX: I48.91 Unspecified atrial fibrillation (principal); Z68.43 Body mass index [BMI] 50.0-59.9, adult; I10 Essential (primary) hypertension; I34.1 Nonrheumatic mitral (valve) prolapse; E66.01 Morbid (severe) obesity due to excess calories; I89.0 Lymphedema, not elsewhere classified; Z66 Do not resuscitate; Z79.1 Long term (current) use of non-steroidal anti-inflammatories (NSAID); Z88.0 Allergy status to penicillin; Z88.2 Allergy status to sulfonamides; Z80.0 Family history of malignant neoplasm of digestive organs; Z82.49 Family history of ischemic heart disease and other diseases of the circulatory system; Z87.891 Personal history of nicotine dependence
CPT/HCPCS: 36415; 71046; 80053; 83735; 84443; 84484; 85025; 87641; 93005; 99285; A9270-GY; J2704

== ENCOUNTER 2021-12-05 07:12 | Inpatient (IN) ==
[2021-12-05] MEDS ORDERED: Magnesium Hydroxide LIQ 30 ML UDC PO PRN (13:53)
[2021-12-05] MEDS ORDERED: Senna TAB 8.6 mg TAB PO PRN (13:53)
[2021-12-05] MEDS ORDERED: Enoxaparin 30 MG/0.3 ML SYR SUBCUT SCH (21:00)
[2021-12-06 06:15] LABS: ABS Eosinophils 0.2 10^3/ul (0-0.6); ABS Monocytes 0.4 10^3/ul (0-0.8); ABS Neutrophils 4.4 10^3/ul (1.5-7.7); Eosinophil % 3.9 %; Hematocrit 25 % (35-47); Hemoglobin 8.3 g/dL (12.0-16.0); Lymphocyte % 16.5 %; Mean Corpuscular HGB Conc 34 g/dL (31-36); Mean Corpuscular Hemoglobin 30 pg (27-31); Mean Corpuscular Volume 89 fL (80-97); Mean Platelet Volume 7.3 fL (7.4-10.4); Platelet Count 254 10^3/uL (150-450); Red Blood Count 2.75 10^6 /uL (3.70-4.87); Red Cell Distribution Width 16 % (10-15); White Blood Count 6.1 10^3/uL (3.5-10.8)
[2021-12-06 06:56] LABS: Albumin 2.9 g/dL (3.2-5.2); Albumin/Globulin Ratio 2.1 (1-3); Calcium 8.2 mg/dL (8.6-10.3); Globulin 1.4 g/dL (2-4); Total Protein 4.3 g/dL (6.4-8.9); eGFR CKD-EPI 79.4 (>60)
[2021-12-06] MEDS: Enoxaparin 40 MG/0.4 ML SYR SUBCUT SCH (10:01)
[2021-12-06] MEDS: Aspirin EC 81 mg TAB.EC (enteric coated) PO SCH (10:02)
[2021-12-07] MEDS: Aspirin EC 81 mg TAB.EC (enteric coated) PO SCH (08:18)
[2021-12-07] MEDS: Enoxaparin 40 MG/0.4 ML SYR SUBCUT SCH (08:20)
[2021-12-08] MEDS: Aspirin EC 81 mg TAB.EC (enteric coated) PO SCH (07:27)
[2021-12-08] MEDS: Enoxaparin 40 MG/0.4 ML SYR SUBCUT SCH (07:45)
[2021-12-09] MEDS: Enoxaparin 40 MG/0.4 ML SYR SUBCUT SCH (09:14)
[2021-12-09] MEDS: Aspirin EC 81 mg TAB.EC (enteric coated) PO SCH (09:15)
[2021-12-10] MEDS: Enoxaparin 40 MG/0.4 ML SYR SUBCUT SCH (08:11)
[2021-12-10] MEDS: Aspirin EC 81 mg TAB.EC (enteric coated) PO SCH (08:11)
[2021-12-10] MEDS: diPHENhydraMINE 25 mg TAB PO PRN (23:43)
[2021-12-11] MEDS: Enoxaparin 40 MG/0.4 ML SYR SUBCUT SCH (09:26)
[2021-12-11] MEDS: Aspirin EC 81 mg TAB.EC (enteric coated) PO SCH (09:26)
[2021-12-11] MEDS: diPHENhydraMINE 25 mg TAB PO PRN ×2 (20:59→22:42)
[2021-12-12] MEDS: Aspirin EC 81 mg TAB.EC (enteric coated) PO SCH (08:43)
[2021-12-12] MEDS: Enoxaparin 40 MG/0.4 ML SYR SUBCUT SCH (08:44)
[2021-12-12 17:39] VITALS: BP 120/72
== END 2021-12-12 18:00 | disposition home or self-care (01) | DRG 860 ==
LOC: PMRU 11:51
PROVIDERS: ADMIT Physical Medicine & Rehabilitation; ATTEND Physical Medicine & Rehabilitation